=== PATIENT | male | born 1945 | race Caucasian/White ===

== ENCOUNTER 2019-03-18 18:04 | Outpatient (CLI) | payer OTHER | END 2019-03-18 18:05 | disposition critical access hospital (66) | LOC: MERGE 18:04 → EMS 18:04 | PROVIDERS: ATTEND Surgery | DX: R56.9 Unspecified convulsions (principal) | CPT/HCPCS: A0425; A0427 ==

== ENCOUNTER 2019-03-18 18:26 | Emergency (ER) | payer OTHER ==
[2019-03-18 18:30] VITALS: BP 137/90
[2019-03-18 19:01] LABS: BASOPHILS # (AUTO) 0.1 10^3/uL (0.0-0.1); BASOPHILS % (AUTO) 0.2 %; EOSINOPHILS # (AUTO) 0.3 10^3/uL (0.0-0.7); EOSINOPHILS % (AUTO) 0.9 %; HGB - HEMOGLOBIN 14.3 g/dL (14.0-18.0); LYMPHOCYTES # (AUTO) 19.2 10^3/uL (1.5-3.5); LYMPHOCYTES % (AUTO) 72.2 %; MEAN CORPUSCULAR HEMOGLOBIN 30.2 pg (27.0-31.0); MEAN CORPUSCULAR HGB CONC 31.6 g/dL (32.0-36.0); MEAN CORPUSCULAR VOLUME 95.8 fL (80.0-94.0); MEAN PLATELET VOLUME 9.7 fL (7.4-11.4); MONOCYTES % (AUTO) 3.8 %; NEUTROPHILS # (AUTO) 5.9 10^3/uL (1.5-6.6); NEUTROPHILS % (AUTO) 22.4 %; PLT - PLATELET COUNT 264 10^3/uL (130-450); RED BLOOD COUNT 4.73 10^6/uL (4.70-6.10); RED CELL DISTRIBUTION WIDTH 13.5 % (12.0-15.0); WHITE BLOOD COUNT 26.5 x10^3/uL (4.8-10.8)
[2019-03-18 19:16] LABS: ALBUMIN 3.8 g/dL (3.2-5.5); ALBUMIN/GLOBULIN RATIO 1.4 (1.0-2.2); BILIRUBIN,TOTAL 0.8 mg/dL (0.2-1.0); CALCIUM 9.2 mg/dL (8.5-10.3); CREATININE 0.9 mg/dL (0.6-1.2); TOTAL PROTEIN 6.5 g/dL (6.7-8.2)
[2019-03-18] MEDS ORDERED: IPRATROPIUM/ALBUTEROL 3 ML NEB INH STA (19:33)
--- NOTE | 2019-03-18 19:36 | ED Physician Documentation ---
PD HPI SYNCOPE - Stated complaint Stated Complaint: SYNCOPE - Chief complaint Chief Complaint: Neuro - History obtained from History obtained from: Patient, Family - History of Present Illness Timing - onset: Today Preceding symptoms: Light headed, Other (Coughing) Associated symptoms: Other (No tongue biting. No injuries). No: Seizure, Incontinant of urine, Incontinant of stool Pain level max: 0 Pain level now: 0 - Additional information Additional information: 73-year-old male presents to the emergency department after being out of his albuterol for the past several weeks. States he had a coughing fit tonight, became lightheaded dizzy and had a syncopal event. Family states that his body stiffened and that he turned red. They state that this lasted approximately 10 seconds, he was confused for approximately 10 to [address] ate that this is never happened before. He has back to his baseline currently. No fevers. Has had a chronic cough. No focal neurological deficits. No headache. No head injury. He did not fall. He was on the couch when this happened. Nothing makes it better or worse Review of Systems Ten Systems: 10 systems reviewed and negative Constitutional: denies: Fever, Chills GI: denies: Vomiting, Diarrhea Skin: denies: Rash Musculoskeletal: denies: Neck pain, Back pain Neurologic: denies: Focal weakness, Numbness, Headache PD PAST MEDICAL HISTORY - Past Medical History Past Medical History: Yes Respiratory: COPD - Present Medications Home Medications: Ambulatory Orders Medication Instructions Recorded Confirmed Albuterol Sulf [Ventolin Hfa 1 - 2 puffs INH Q4HR PRN #1 inhaler 03/18/19 Inhaler] Tiotropium [place] [Spiriva 2 puffs IH DAILY #1 mist.inhal 03/18/19 Respimat] - Living Situation Living Situation: reports: With family Living Arrangement: reports: At home - Social History Does the pt have substance abuse?: No - Family History Family history: reports: Non contributory PD ED PE NORMAL - Vitals Vital signs reviewed: Yes - General General: Alert and oriented X 3, No acute distress, Well developed/nourished - HEENT HEENT: Atraumatic, PERRL, Moist mucous membranes, Pharynx benign, Other - Neck Neck: Supple, no meningeal sign, No bony TTP - Cardiac Cardiac: RRR, No murmur, Strong equal pulses - Respiratory Respiratory: No respiratory distress, Other (Mild wheezing bilaterally, mildly diminished breath sounds bilaterally) - Abdomen Abdomen: Soft, Non tender, Non distended - Back Back: No spinal TTP - Derm Derm: Warm and dry - Extremities Extremities: No edema, No calf tenderness / cord - Neuro Neuro: Alert and oriented X 3, brake reliner 2-12 intact, No motor deficit, No sensory deficit, Normal speech Eye Opening: Spontaneous Motor: Obeys Commands Verbal: Oriented GCS Score: 15 - Psych Psych: Normal mood, Normal affect Results - Vitals Vitals: Vital Signs - 24 hr 03/18/19 03/18/19 18:27 20:32 Temperature 36.6 C Heart Rate 87 73 Respiratory 14 18 Rate Blood Pressure 137/90 H O2 Saturation 95 Oxygen O2 Source Room air - EKG (time done) 1909 Rate: Rate (enter#) (70) Rhythm: NSR [place]: Normal Intervals: Normal [place] QRS: Normal Ischemia: Normal ST segments - Labs Labs: Laboratory Tests 03/18/19 03/18/19 03/18/19 18:54 18:54 18:54 WBC 26.5 H RBC 4.73 Hgb 14.3 Hct 45.3 MCV 95.8 H MCH 30.2 MCHC 31.6 L RDW 13.5 Plt Count 264 MPV 9.7 Neut # (Auto) 5.9 Lymph # (Auto) 19.2 H [place] # (Auto) 1.0 Eos # (Auto) 0.3 Baso # (Auto) 0.1 Absolute Nucleated RBC 0.00 Band Neuts % (Manual) Not Reportable Abnorm Lymph % (Manual) Not Reportable Nucleated RBC % 0.0 Neutrophils # (Manual) Not Reportable Lymphocytes # (Manual) Not Reportable Monocytes # (Manual) Not Reportable Eosinophils # (Manual) Not Reportable Basophils # (Manual) Not Reportable Differential Comment MANUAL=AUTO DIFF Manual Slide Review Indicated WBC Morphology 2+ SMUDGE CELLS Platelet Estimate NORMAL (130-450,000) Platelet Morphology NORMAL APPEARANCE RBC Morph Micro Appear NORMAL APPEARANCE Sodium 140 Potassium 4.0 Chloride 102 Carbon Dioxide 27 Anion Gap 11.0 BUN 25 H Creatinine 0.9 Estimated GFR (MDRD) 83 L Glucose 94 Calcium 9.2 Total Bilirubin 0.8 AST 22 ALT 41 Alkaline Phosphatase 64 Troponin I High Sens 3.3 Total Protein 6.5 L Albumin 3.8 Globulin 2.7 Albumin/Globulin Ratio 1.4 Lipase 50 - Rads (name of study) Chest x-ray Radiology: Prelim report reviewed, EMP read contemporaneously, See rad report (No acute abnormality) PD MEDICAL DECISION MAKING - ED course Complexity details: reviewed results, re-evaluated patient, considered differential, d/w patient, d/w family ED course: 73-year-old male with what sounds like a syncopal event from a posttussive episode. He is out of his inhalers and these will be refilled for him. No significant lab findings other than dehydration. Does have chronic leukocytosis from a history of of leukemia. He states that his normal white blood cell count is approximately 24,000. No evidence of seizure. No evidence of stroke or SD. We will have him follow-up with his doctor for further care. Feels better after breathing treatments here. Patient counseled regarding signs and symptoms for which I believe and urgent re-evaluation would be necessary. Patient with good understanding of and agreement to plan and is comfortable going home at this time This document was made in part using voice recognition software. While efforts are made to proofread this document, sound alike and grammatical errors may occur. Departure - Departure Disposition: 01 Home, Self Care Clinical Impression: Syncope Qualifiers: Syncope type: unspecified Qualified Code(s): R55 - Syncope and collapse Condition: Good Instructions: ED Syncope Vasovagal Follow-Up: LOUIE WEINER MD [Primary Care Provider] - Within 1 week Prescriptions: Albuterol Sulf [Ventolin Hfa Inhaler] 1 - 2 puffs INH Q4HR PRN #1 inhaler PRN Reason: Shortness Of Air/Wheezing Tiotropium [place] [Spiriva Respimat] 2 puffs IH DAILY #1 mist.inhal Comments: Return if you worsen. Drink plenty of fluids at home. Make sure to use your medications as prescribed. Follow-up with your doctor for further care. Discharge Date/Time: 03/18/19 21:40
--- NOTE | 2019-03-18 19:45 | XRAY Report ---
Reason: syncope Procedure Date: 03/18/2019 Accession Number: [id number] / [id number] Procedure: XR - Chest 1 View X-Ray CPT Code: 97562 Final Report FULL RESULT: EXAM: CHEST RADIOGRAPHY EXAM DATE: 03/18/2019 07:27 PM. CLINICAL HISTORY: Syncope after hard cough. COMPARISON: None. TECHNIQUE: 1 view. FINDINGS: Lungs/Pleura: Calcified granuloma, lateral right upper lobe, otherwise no focal opacities evident. No pleural effusion. No pneumothorax. Mediastinum: Within exam limitations, the cardiomediastinal contour is normal. Other: No fractures identified. IMPRESSION: No acute pulmonary abnormality. RADIA
[2019-03-18 19:50] LABS: DIFFERENTIAL COMMENT MANUAL=AUTO DIFF; PLATELET ESTIMATE, MANUAL NORMAL (130-450,000) (NORMAL); PLATELET MORPHOLOGY NORMAL APPEARANCE (NORMAL); RBC MORPHOLOGY (MULTIPLE) NORMAL APPEARANCE (NORMAL)
== END 2019-03-18 21:40 | disposition home or self-care (01) ==
LOC: MERGE 18:26 → ED 18:26
DX: R55 Syncope and collapse (principal); E86.0 Dehydration; J44.9 Chronic obstructive pulmonary disease, unspecified; Z85.6 Personal history of leukemia; Z76.0 Encounter for issue of repeat prescription
CPT/HCPCS: 36415; 71045; 80053; 83690; 84484; 85025; 93005; 94640; 99284; 99285

== ENCOUNTER 2021-09-04 14:45 | Outpatient (CLI) | payer OTHER ==
--- NOTE | 2021-09-04 16:35 | CT Report ---
PROCEDURE: Low Dose Lung Cancer Screen INDICATIONS: PULMONARY NODULES TECHNIQUE: Noncontrast low-dose axial images were acquired from the pulmonary apices to the posterior costophren ic angles. Multiplanar MIP reformats were then reconstructed. For radiation dose reduction, the follo wing was used: automated exposure control, adjustment of mA and/or kV according to patient size. COMPARISON: Reports of CT chest with contrast, 03/16/2010 and 08/07/2011. FINDINGS: Image quality: Excellent. Lungs and pleura: There are lung nodules are present bilaterally Nodule 1: 0.7 cm; lateral right upper lobe; series 4 image 58; spiculated, noncalcified. Nodule 2: 0.3 cm; posterior lateral right upper lobe; series 4 image 132; solid, noncalcified. There are subtle groundglass infiltrates in the left upper lobe. Multiple calcified nodules are seen, one in the right upper lobe measuring 1.2 cm and one in the supe rior segment of the left lower lobe measuring 0.7 cm, compatible with remote granulomas. Mediastinum: Heart size is normal. Mild coronary calcification. No pericardial effusion. Borderline sized mediastinal lymph nodes are nonspecific. Thoracic aorta and central pulmonary arteries are no rmal in size. Esophagus is normal in caliber. No hiatal hernia. Bones and chest wall: No suspicious bony lesions. No vertebral body compression fractures. No axil mayte or supraclavicular adenopathy by size criteria. The thyroid is normal in size and there are no incidental findings. Abdomen: There are multiple low-density nodules in liver. The larger lesions are likely cysts. Megan us tiny lesions are too small to further characterize. There is a 2 cm low-density nodule in the medi al cortex of the superior pole of the left kidney, most likely a cyst. IMPRESSION: 1. A couple of noncalcified nodules in the right upper lobe. Recommend a short-term follow-up CT in 3 months. 2. Mild nodular groundglass infiltrates in the left upper lobe, most likely infectious or inflammator y in etiology. 3. Calcified nodules bilaterally are compatible with old granulomas. 4. Multiple hypodense nodules in liver. The largest lesions are most likely cysts. Many small lesions are too small to further characterize, therefore, considered indeterminate. CLINICAL RECOMMENDATION STATEMENTS: In patients <35 years with an ITN detected on CT, MRI, or extrathyroidal ultrasound, the Committee re commends further evaluation with dedicated thyroid ultrasound if the nodule is "e1 cm and has no susp icious imaging features, and if the patient has normal life expectancy. In patients "e35 years with an ITN detected on CT, MRI, or extrathyroidal ultrasound, the Committee r ecommends further evaluation with dedicated thyroid ultrasound if the nodule is "e1.5 cm and has no s uspicious imaging features, and if the patient has normal life expectancy. (ACR, 2014) Reviewed by: Austin Royal MD on 09/04/2021 4:34 PM PDT Approved by: Austin Royal MD on 09/04/2021 4:34 PM PDT Station ID: [id number]
== END 2021-09-04 14:46 | disposition home or self-care (01) ==
LOC: DI 14:45
PROVIDERS: ATTEND Internal Medicine
DX: R91.8 Other nonspecific abnormal finding of lung field (principal); K76.9 Liver disease, unspecified

== ENCOUNTER 2021-11-29 13:18 | Emergency (ER) | payer OTHER ==
[2021-11-29 14:03] LABS: BASOPHILS % (AUTO) 0.3 %; EOSINOPHILS % (AUTO) 1.5 %; HCT - HEMATOCRIT 46.3 % (42.0-52.0); HGB - HEMOGLOBIN 14.7 g/dL (14.0-18.0); LYMPHOCYTES % (AUTO) 56.3 %; MEAN CORPUSCULAR HEMOGLOBIN 31.4 pg (27.0-31.0); MEAN CORPUSCULAR HGB CONC 31.7 g/dL (32.0-36.0); MEAN CORPUSCULAR VOLUME 98.9 fL (80.0-94.0); MEAN PLATELET VOLUME 9.5 fL (7.4-11.4); MONOCYTES % (AUTO) 3.5 %; NEUTROPHILS % (AUTO) 38.1 %; PLT - PLATELET COUNT 467 10^3/uL (130-450); RED BLOOD COUNT 4.68 10^6/uL (4.70-6.10); RED CELL DISTRIBUTION WIDTH 15.5 % (12.0-15.0); WHITE BLOOD COUNT 21.2 x10^3/uL (4.8-10.8)
[2021-11-29 14:04] LABS: SLIDE REVIEW? Indicated
[2021-11-29 14:07] LABS: ABNORMAL LYMPHS % (MANUAL) 0 %; BAND NEUTROPHILS % (MANUAL) 0 %
[2021-11-29 14:32] LABS: ALBUMIN 4.2 g/dL (3.2-5.5); ALBUMIN/GLOBULIN RATIO 1.6 (1.0-2.2); BILIRUBIN,TOTAL 1.1 mg/dL (0.2-1.0); CALCIUM 9.7 mg/dL (8.5-10.3); POTASSIUM 4.1 mmol/L (3.5-5.0); TOTAL PROTEIN 6.8 g/dL (6.7-8.2)
[2021-11-29 15:44] LABS: EOSINOPHILS # (MANUAL) 0.4 10^3/uL (0-0.7); LYMPHOCYTES # (MANUAL) 10.2 10^3/uL (1.5-3.5); LYMPHOCYTES % (MANUAL) 48 %; MONOCYTES # (MANUAL) 0.4 10^3/uL (0.0-1.0); NEUTROPHILS # (MANUAL) 10.2 10^3/uL (1.5-6.6)
--- NOTE | 2021-11-29 15:44 | ED Physician Documentation ---
PD HPI FOCAL NEURO - Stated complaint Stated Complaint: DIZZINESS - Chief complaint Chief Complaint: Neuro - History obtained from History obtained from: Patient - Additional information Additional information: 76-year-old gentleman with conservatively managed CLL presents with vertigo for the last 4 days. He states that whenever he changes position or turns his head he feels like the room is spinning. It goes away after 30 seconds to a couple of minutes. It is not associated with headache, weakness, numbness, tingling in hands or feet, facial droop, diplopia, nausea, or sweats. He has never had this before. Review of Systems Constitutional: denies: Fever, Chills Throat: reports: Reviewed and negative Cardiac: reports: Reviewed and negative Respiratory: reports: Reviewed and negative PD PAST MEDICAL HISTORY - Past Medical History Respiratory: COPD - Present Medications Home Medications: Ambulatory Orders Medication Instructions Recorded Confirmed Albuterol Sulf [Ventolin Hfa 1 - 2 puffs INH Q4HR PRN #1 inhaler 03/18/19 11/29/21 Inhaler] Tiotropium [place] [Spiriva 2 puffs IH DAILY #1 mist.inhal 03/18/19 11/29/21 Respimat] - Allergies Allergies/Adverse Reactions: Allergies Allergy/AdvReac Type Severity Reaction Status Date / Time No Known Drug Allergies Allergy Verified 11/29/21 13:46 - Social History Does the pt have substance abuse?: No PD ED PE NORMAL - Vitals Vital signs reviewed: Yes - General General: Alert and oriented X 3, No acute distress - HEENT HEENT: PERRL, EOMI - Neck Neck: Supple, no meningeal sign, No bony TTP - Cardiac Cardiac: RRR, No murmur - Respiratory Respiratory: No respiratory distress, Clear bilaterally - Abdomen Abdomen: Normal bowel sounds, Soft, Non tender - Back Back: No CVA TTP, No spinal TTP - Derm Derm: Normal color, Warm and dry - Extremities Extremities: No edema, No calf tenderness / cord - Neuro Neuro: Alert and oriented X 3, No motor deficit, No sensory deficit, Normal speech, Other (nl finger-nose and heel rg testing) Eye Opening: Spontaneous Motor: Obeys Commands Verbal: Oriented GCS Score: 15 Results - Vitals Vitals: Vital Signs - 24 hr 11/29/21 13:43 Temperature 36.5 C Heart Rate 88 Respiratory 16 Rate Blood Pressure 130/72 O2 Saturation 98 Oxygen O2 Source Room air - Labs Labs: Laboratory Tests 11/29/21 11/29/21 11/29/21 13:56 13:56 13:56 WBC 21.2 H RBC 4.68 L Hgb 14.7 Hct 46.3 MCV 98.9 H MCH 31.4 H MCHC 31.7 L RDW 15.5 H Plt Count 467 H MPV 9.5 Manual Slide Review Indicated Sodium 139 Potassium 4.1 Chloride 102 Carbon Dioxide 29 Anion Gap 8.0 BUN 23 H Creatinine 1.0 Estimated GFR (MDRD) 73 L Glucose 93 Calcium 9.7 Total Bilirubin 1.1 H AST 26 ALT 46 Alkaline Phosphatase 72 Troponin I High Sens 4.4 Total Protein 6.8 Albumin 4.2 Globulin 2.6 Albumin/Globulin Ratio 1.6 Lipase 50 PD MEDICAL DECISION MAKING - ED course ED course: He has a positive Monroe-Hallpike maneuver. He becomes also symptomatic during the attempted Renaldo maneuver and he was shown how to do this at home. He is asymptomatic at rest with a normal neuro exam including finger-nose and [id number] testing and his gait is normal. And given the entirety of the history and physical this is clearly peripheral vertigo/BPPV. His right ear is the symptomatic 1. Departure - Departure Disposition: 01 Home, Self Care Clinical Impression: BPPV (benign paroxysmal positional vertigo) Qualifiers: Laterality: right Qualified Code(s): H81.11 - Benign paroxysmal vertigo, right ear Condition: Good Record reviewed to determine appropriate education?: Yes Instructions: Vertigo Paroxysmal Positional Comments: You are seen today for benign paroxysmal positional vertigo. This is related generally to a loose crystal in your inner ear balance system. You can continue to do the Renaldo maneuver with the right ear down and then laying in bed for a minute or 2 until your symptoms are gone and then rolling over and putting your left ear down and then waiting a minute or 2 and slowly sitting up. If you do this a few times, I suspect her symptoms will be completely gone. Return for new or worsening symptoms. Follow-up with your primary care physician, next billable appointment.
[2021-11-29 15:45] LABS: DIFFERENTIAL COMMENT MANUAL DIFFERENTIAL; PLATELET ESTIMATE, MANUAL INCREASED (>450,000) (NORMAL); PLATELET MORPHOLOGY 1+ GIANT PLATELETS (NORMAL); RBC MORPHOLOGY (MULTIPLE) NORMAL APPEARANCE (NORMAL); WBC MORPHOLOGY (MULTIPLE) NORMAL APPEARANCE (NORMAL)
[2021-11-29 15:47] VITALS: BP 119/71
== END 2021-11-29 15:47 | disposition home or self-care (01) ==
LOC: ED 13:18
DX: H81.11 Benign paroxysmal vertigo, right ear (principal)
CPT/HCPCS: 36415; 80053; 83690; 84484; 85025; 99282; 99284

== ENCOUNTER 2022-01-02 09:16 | Outpatient (CLI) | payer OTHER ==
--- NOTE | 2022-01-02 13:55 | CT Report ---
PROCEDURE: Low Dose Lung Cancer Screen INDICATIONS: PULMONARY NODULES TECHNIQUE: Noncontrast low-dose axial images were acquired from the pulmonary apices to the posterior costophren ic angles. Multiplanar MIP reformats were then reconstructed. For radiation dose reduction, the follo wing was used: automated exposure control, adjustment of mA and/or kV according to patient size. COMPARISON: CT Lung Screening 09/04/21 FINDINGS: Image quality: Excellent. Lungs and pleura: 9 mm opacity in the right upper lobe, compared to 7mm on prior exam. It is somewha t spiculated in appearance. It appears overall more dense when compared to prior exam. Calcified nodu le in the right upper lobe is unchanged. 3 mm posterior lateral right nodule seen on series 4 image 1 27. It is unchanged. Mediastinum: Heart size is normal. No pericardial effusion. No mediastinal adenopathy by size crit eria. Thoracic aorta and central pulmonary arteries are normal in size. Esophagus is normal in connor adin. No hiatal hernia. Bones and chest wall: No suspicious bony lesions. No vertebral body compression fractures. No axil mayte or supraclavicular adenopathy by size criteria. The thyroid is normal in size and there are no incidental findings. Abdomen: Multiple low-attenuation hepatic lesions are unchanged. Low-attenuation left renal focus is also unchanged. Otherwise, visualized upper abdomen solid organs and bowel loops appear normal in th e absence of contrast. IMPRESSION: Interval increase in size and overall density of now a 9 mm spiculated right upper lobe nodule. Given its spiculated appearance as well as interval increase in size and density, finding is concerning fo r malignancy and further evaluation is recommended. 3 mm posterior lateral right nodule is stable and overall nonspecific. Multiple low-attenuation foci within the liver with the larger foci most suggestive of cysts. However , smaller foci are too small to definitively characterize. CLINICAL RECOMMENDATION STATEMENTS: In patients <35 years with an ITN detected on CT, MRI, or extrathyroidal ultrasound, the Committee re commends further evaluation with dedicated thyroid ultrasound if the nodule is "e1 cm and has no susp icious imaging features, and if the patient has normal life expectancy. In patients "e35 years with an ITN detected on CT, MRI, or extrathyroidal ultrasound, the Committee r ecommends further evaluation with dedicated thyroid ultrasound if the nodule is "e1.5 cm and has no s uspicious imaging features, and if the patient has normal life expectancy. (ACR, 2014) Reviewed by: Amanda Goodwin MD on 01/02/2022 1:53 PM PST Approved by: Amanda Goodwin MD on 01/02/2022 1:53 PM PST Station ID: [id number]
== END 2022-01-02 09:17 | disposition home or self-care (01) ==
LOC: DI 09:16
PROVIDERS: ATTEND Internal Medicine
DX: R91.8 Other nonspecific abnormal finding of lung field (principal)

== ENCOUNTER 2022-03-06 10:29 | Emergency (ER) | payer OTHER ==
--- NOTE | 2022-03-06 12:01 | XRAY Report ---
PROCEDURE: Chest 2 View X-Ray INDICATIONS: cough TECHNIQUE: 2 views of the chest were acquired. COMPARISON: None FINDINGS: Surgical changes and devices: None. Lungs and pleura: No pleural effusions or pneumothorax. Lungs are clear other than right upper lobe calcified granulomas. Mediastinum: Mediastinal contours are normal. Heart size is normal. Bones and chest wall: No suspicious bony abnormalities. Soft tissues appear unremarkable. IMPRESSION: No acute cardiopulmonary findings Reviewed by: Chan Gallo MD on 03/06/2022 11:00 AM [facility] Approved by: Chan Gallo MD on 03/06/2022 11:00 AM [facility] Station ID: [id number]
[2022-03-06] MEDS ORDERED: ALBUTEROL NEB 2.5 MG/3 ML INH STA (16:25)
[2022-03-06] MEDS ORDERED: IPRATROPIUM 0.2 MG/ML NEB INH STA (16:25)
--- NOTE | 2022-03-06 16:27 | ED Physician Documentation ---
History of Present Illness - Stated complaint Stated Complaint: COUGH/SOA - Chief complaint Chief Complaint: Resp - Additonal information Additional information: 76-year-old male presents to the emergency department for evaluation 4 to 5 days worsening productive cough and wheeze. No fevers. He has a history of COPD for which he is on a ICS as well as a LABA. He has been using his albuterol much more frequently. He continues to smoke 1/2 pack/day. Has never required oxygen. Denies chest pain. No exertional dyspnea but the cough is worse at night. History obtained from patient. Reliable historian Review of Systems Constitutional: denies: Fever, Myalgias Eyes: reports: Reviewed and negative Throat: reports: Reviewed and negative Cardiac: reports: Reviewed and negative Respiratory: reports: Dyspnea, Cough, Wheezing. denies: Hemoptysis GI: reports: Reviewed and negative : reports: Reviewed and negative PD PAST MEDICAL HISTORY - Past Medical History Respiratory: COPD - Present Medications Home Medications: Ambulatory Orders Medication Instructions Recorded Confirmed Albuterol Sulf [Ventolin Hfa 1 - 2 puffs INH Q4HR PRN #1 inhaler 03/18/19 11/29/21 Inhaler] Tiotropium [place] [Spiriva 2 puffs IH DAILY #1 mist.inhal 03/18/19 11/29/21 Respimat] Azithromycin [Zithromax] 250 mg PO UD 5 Days #6 tablet 03/06/22 Benzonatate [Tessalon] 200 mg PO TID PRN #20 cap 03/06/22 predniSONE [Deltasone] 40 mg PO DAILY 4 Days #8 tablet 03/06/22 - Allergies Allergies/Adverse Reactions: Allergies Allergy/AdvReac Type Severity Reaction Status Date / Time No Known Drug Allergies Allergy Verified 03/06/22 10:52 - Social History Does the pt have substance abuse?: No PD ED PE NORMAL - General General: Alert and oriented X 3, No acute distress - HEENT HEENT: Atraumatic, Moist mucous membranes - Neck Neck: Supple, no meningeal sign, No adenopathy - Cardiac Cardiac: RRR, No murmur - Respiratory Respiratory: No respiratory distress. 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 Eye Opening: Spontaneous Motor: Obeys Commands Verbal: Oriented GCS Score: 15 Results - Vitals Vitals: Vital Signs - 24 hr 03/06/22 03/06/22 10:54 15:18 Temperature 36.8 C 36.6 C Heart Rate 75 80 Respiratory 18 12 Rate Blood Pressure 127/73 136/80 H O2 Saturation 97 98 Oxygen O2 Source Room air - Rads (name of study) cxr Radiology: Final report received (No acute cardiopulmonary finding) PD Medical Decision Making - ED course Complexity details: reviewed results, considered differential, d/w patient ED course: This is a very well-appearing 76-year-old male who carries a history of nonoxygen dependent COPD who presents with worsening productive cough for the last 5 days. No fevers. Cough is certainly worse at night. He is compliant with his ICS as well as his LABA but is required his albuterol more frequently. Here in the emergency department he is nonlabored though he has diffuse expiratory wheeze on auscultation. Chest x-ray shows no acute cardiopulmonary abnormalities. There is no hypoxia. Patient was administered albuterol here in the emergency department with marked improvement in his auscultation. Patient will be discharged with a burst for prednisone as well as azithromycin. Tessalon Perles were also prescribed. We did discuss worrisome emergent return precautions. Departure - Departure Disposition: Home, Self Care Clinical Impression: COPD with acute exacerbation Condition: Stable Record reviewed to determine appropriate education?: Yes Instructions: ED COPD Flare Prescriptions: predniSONE [Deltasone] 40 mg PO DAILY 4 Days #8 tablet Benzonatate [Tessalon] 200 mg PO TID PRN #20 cap PRN Reason: Cough Azithromycin [Zithromax] 250 mg PO UD 5 Days #6 tablet Comments: Harris you are seen today in the emergency department because for the last 4 to 5 days you have had worsening cough. You do have COPD and I suspect they have a COPD flare. In order to manage this and I am sending a prescription to the [facility] for an additional 4 days of steroids, a round of antibiotics as well as some cough suppressants. Typically with a COPD flare I would expect these medications to start making you feel better over the next 72 to 96 hours. If you are not feeling better, you develop any fevers, have severe shortness of air or difficulty breathing you should return immediately to the ER. As always it is important that you follow closely with your primary care doctor.
[2022-03-06] MEDS ORDERED: AZITHROMYCIN 250 MG TABLET PO STA (16:31)
[2022-03-06] MEDS ORDERED: predniSONE 20 MG TABLET PO STA (16:33)
[2022-03-06 17:13] VITALS: BP 130/80
== END 2022-03-06 17:12 | disposition home or self-care (01) ==
LOC: ED 10:29
DX: J44.1 Chronic obstructive pulmonary disease with (acute) exacerbation (principal); F17.200 Nicotine dependence, unspecified, uncomplicated
CPT/HCPCS: 71046; 94640; 99283; 99284; A9270; J7512